=== PATIENT | female | born 1985 | race Caucasian/White ===

== ENCOUNTER 2018-05-01 12:31 | Day surgery (SDC) | payer MEDICAID ==
[2018-04-24 12:56] VITALS: BMI 23.9
[2018-05-01 13:08] LABS: BASO # 0.01 K/mm3 (0.0-2.0); BASO % 0.2 % (0.0-3.0); EOS % 0.9 % (1.5-5.0); GRAN # 2.61 (1.4-6.5); GRAN % 56.9 % (50.0-68.0); HEMOGLOBIN 14.1 g/dL (12.0-16.0); LYMPH # 1.7 (1.2-3.4); LYMPH % 37.9 % (22.0-35.0); MEAN CORPUSCULAR HEMOGLOBIN 29.7 pg (25.0-35.0); MEAN CORPUSCULAR HGB CONC 33.4 g/dl (31.0-37.0); MEAN PLATELET VOLUME 10.1 fl (7.0-11.0); MONO # 0.2 (0.1-0.6); MONO % 4.1 % (1.0-6.0); RBC 4.74 10^6/uL (3.5-6.1); RED CELL DISTRIBUTION WIDTH 13.5 % (11.5-14.5); WHITE BLOOD COUNT 4.6 10^3/uL (4.5-11.0)
[2018-05-01 13:16] LABS: INR 1.14; PARTIAL THROMBOPLASTIN TIME 32.9 Seconds (25.1-36.5); PROTHROMBIN TIME 13.1 SECONDS (9.4-12.5)
[2018-05-01 13:17] LABS: BLOOD UREA NITROGEN 11 mg/dL (7-21); CALCIUM 9.8 mg/dL (8.4-10.5); GFR NON-AFRICAN AMERICAN > 60
[2018-05-01] MEDS ORDERED: Midazolam 2 MG/2 ML VIAL ONE (14:51)
[2018-05-01] MEDS ORDERED: Midazolam 2 MG/2 ML VIAL IVP ONE (15:10)
[2018-05-01] MEDS ORDERED: Oxycodone/Acetaminophen 5/325 mg Tab PO PRN (15:25)
[2018-05-01] MEDS ORDERED: Sodium Chloride 0.45% 1,000 ML IV SCH (15:30)
--- NOTE | 2018-05-01 16:06 | US ---
PROCEDURE: Ultrasound-guided left thyroid fine needle aspiration biopsy. CLINICAL HISTORY: Confluent left nodules measuring approximately 12 mm. Evaluate for malignancy PHYSICIAN(S): Cody Ring M.D. TECHNIQUE: The relative risks and indications for the procedure were explained to the patient and consent obtained. The patient was placed supine on the stretcher with the neck extended and preliminary sonography of the thyroid performed. There are 2 small nodules in the left thyroid measuring 8-10 mm. One is hypoechoic and the other is isoechoic. These nodules were selected for biopsy. The neck was prepped and draped in the usual sterile fashion. Conscious sedation and monitoring were provided throughout the procedure by a nurse. 1% Xylocaine was used to anesthetize the skin and soft tissues at the access site. Three passes with a 22-gauge needle were performed under ultrasound guidance for fine needle aspiration of the confluent nodules in the left thyroid. The slides were reviewed by pathology and deemed adequate. The patient tolerated the procedure well. IMPRESSION: 1. Ultrasound guided fine needle aspiration of 2 confluent small nodules in left thyroid as described above
[2018-05-01 16:19] VITALS: O2SAT 100
[2018-05-01 16:34] VITALS: BP 104/66; PULSE 78; RESP 18; TEMP 1046
== END 2018-05-01 17:00 | disposition home or self-care (01) ==
LOC: SDS 12:31
PROVIDERS: ATTEND Radiology Vascular & Interventional Radiology
DX: E04.1 Nontoxic single thyroid nodule (principal)
CPT/HCPCS: 10022; 36415; 76942; 80048; 84703; 85025; 85610; 85730; 88173; 88305; J2001; J2250; J2405; J3010; J7030